=== PATIENT | male | born 1945 | race Two or more races ===

== ENCOUNTER 2017-05-18 02:19 | Emergency (ER) | payer BC, OTHER ==
[~2017-05-18] VITALS: Ht 177.8 cm; Wt 87.5 kg
[2017-05-18 03:23] LABS: HEMATOCRIT 46.5 % (38.0-50.0); MCH 32.6 PG (29.0-34.0); MCHC 35.3 G/DL (30.0-36.0); MCV 92.4 FL (86-99); PLATELET COUNT 197 K/uL (156-360); RBC DIS.WIDTH-CV 12.8 % (11.8-14.6); RBC DIS.WIDTH-SD 43.5 % (39-53); RED BLOOD COUNT 5.03 M/uL (4.00-5.50); WHITE BLOOD COUNT 9.5 K/uL (4.1-10.2)
[2017-05-18 03:35] LABS: CHLORIDE 103 mEq/L (99-109); POTASSIUM 4.1 mEq/L (3.7-5.4); SODIUM 136 mEq/L (136-147)
[2017-05-18 03:37] LABS: GLUCOSE 102 mg/dL (70-99)
[2017-05-18 03:38] LABS: ANION GAP 12 MEQ/L (2-14)
[2017-05-18 03:39] LABS: TOTAL BILIRUBIN 0.9 mg/dL (0.0-1.0)
[2017-05-18 03:40] LABS: ALKALINE PHOSPHATASE 55 IU/L (3-129)
[2017-05-18 03:41] LABS: GFR ESTIMATE (CALCULATED) > 59 mL/min/
[2017-05-18 03:42] LABS: UREA NITROGEN (BUN) 12 mg/dL (9-23)
[2017-05-18 04:47] LABS: ADD MIUA? YES; BILIRUBIN NEGATIVE; BLOOD SMALL; COLOR STRAW ((YELLOW)); GLUCOSE (STRIP) NEGATIVE; KETONES NEGATIVE; LEUKOCYTES NEGATIVE; NITRITE NEGATIVE; PROTEIN (STRIP) NEGATIVE; SPECIFIC GRAVITY 1.015 (1.000-1.030); UROBILINOGEN 0.2 MG/DL (0.2-1.0)
[2017-05-18 04:53] LABS: BACTERIA NONE SEEN /HPF; EPITHELIAL CELLS NONE SEEN /HPF; MUCUS NONE SEEN /LPF; RED BLOOD CELLS 0-5 /HPF (0-5); UCUL ADDED? NO; WHITE BLOOD CELLS 0-5 /HPF (0-5)
[2017-05-18] MEDS ORDERED: FLAGYL500 MG PO (05:17)
[2017-05-18] MEDS ORDERED: CIPRO500 MG PO (05:17)
[2017-05-18] MEDS ORDERED: NORCO 5/3251 TABLET PO (05:17)
[2017-05-18 05:49] VITALS: BP 135/71
== END 2017-05-18 05:53 | disposition home or self-care (01) ==
LOC: EME 02:19
PROVIDERS: Physician Assistant
DX: K57.32 Diverticulitis of large intestine without perforation or abscess without bleeding (principal); I72.8 Aneurysm of other specified arteries; F17.200 Nicotine dependence, unspecified, uncomplicated
CPT/HCPCS: 74177; 80053; 81003; 85027; 99281; 99284; J2270; J2405; J7030